=== PATIENT | male | born 1935 | race Asian ===

== ENCOUNTER 2019-07-12 08:17 | Emergency (ER) | payer MEDICARE, MEDICAID ==
[~2019-07-12] VITALS: Ht 160 cm; Wt 83.1 kg
[2019-07-12 09:18] LABS: BASOPHILS % (AUTO) 0.4 % (0-1); EOSINOPHILS # (AUTO) 0.2 X10'3 (0-0.9); EOSINOPHILS % (AUTO) 3.7 % (0-6); HEMATOCRIT 44.9 % (42.0-52.0); HEMOGLOBIN 14.9 g/dl (14.0-17.9); LYMPHOCYTES # (AUTO) 0.8 X10'3 (1.1-4.8); LYMPHOCYTES % (AUTO) 13.6 % (21-51); MEAN CORPUSCULAR HEMOGLOBIN 30.8 PG (27.0-31.0); MEAN CORPUSCULAR HGB CONC 33.3 g/dL (33.0-36.5); MEAN CORPUSCULAR VOLUME 92.8 FL (78-98); MEAN PLATELET VOLUME 7.9 FL (7.4-10.4); MONOCYTES # (AUTO) 0.2 X10'3 (0-0.9); MONOCYTES % (AUTO) 3.2 % (2-12); NEUTROPHILS # (AUTO) 4.6 X10'3 (1.8-7.7); NEUTROPHILS % (AUTO) 79.1 % (42-75); PLATELET COUNT 165 X10'3 (140-440); RED BLOOD COUNT 4.84 X10'6 (4.70-6.10); RED CELL DISTRIBUTION WIDTH 13.2 % (11.5-14.5); WHITE BLOOD COUNT 5.8 X10'3 (4.5-11.0)
[2019-07-12 09:31] LABS: ALANINE AMINOTRANSFERASE 43 U/L (12-78); ALBUMIN 3.2 G/DL (3.4-5.0); ALBUMIN/GLOBULIN RATIO 0.8 (1.1-1.5); ALKALINE PHOSPHATASE 101 IU/L (46-116); ANION GAP 7 (8-16); ASPARTATE AMINO TRANSFERASE 26 U/L (10-37); BILIRUBIN,TOTAL 0.6 MG/DL (0.1-1.0); BLOOD UREA NITROGEN 23 MG/DL (7-18); BUN/CREATININE RATIO 16.3 (5.4-32.0); CALCIUM 8.3 MG/DL (8.5-10.1); CHLORIDE 106 MMOL/L (99-107); CREATININE 1.41 MG/DL (0.60-1.10); GLUCOSE 424 MG/DL (70-104); POTASSIUM 5.5 MMOL/L (3.5-5.1); SODIUM 139 MMOL/L (135-145); TOTAL CARBON DIOXIDE 25.9 MMOL/L (24-32); eGFR 48 ML/MIN
[2019-07-12 09:39] LABS: LIPASE 249 U/L (73-393); MAGNESIUM 2.4 MG/DL (1.5-2.4)
[2019-07-12] MEDS ORDERED: insulin regular, human 10 units/0.1 ml syringe SQ ONE (09:45)
[2019-07-12] MEDS ORDERED: insulin regular, human 10 units/0.1 ml syringe IV ONE (11:05)
[2019-07-12] MEDS ORDERED: normal saline 1000ML IV soln IVB ONE (11:05)
[2019-07-12] MEDS ORDERED: POLY17PO10 PO (13:08)
[2019-07-12 13:22] VITALS: BP 142/83
== END 2019-07-12 13:24 | disposition home or self-care (01) ==
LOC: ER 08:18
DX: K59.00 Constipation, unspecified (principal); E11.65 Type 2 diabetes mellitus with hyperglycemia; J43.9 Emphysema, unspecified; Z87.891 Personal history of nicotine dependence; Z79.899 Other long term (current) drug therapy
CPT/HCPCS: 36415; 71045; 74176; 80053; 82948; 83690; 83735; 83880; 84484; 85025; 93005; 96361; 96372; 96374; 99284; J1815; J7030

== ENCOUNTER 2023-04-23 12:36 | Emergency (ER) | payer MEDICARE, MEDICAID ==
[~2023-04-23] VITALS: Ht 165.1 cm; Wt 84.1 kg
[~2023-04-23 12:36] MED LIST: ALBU17AE26 PO; ATOR20TA66 PO; GLIP10TA21 PO; LORA10TA7 PO; NOR5T PO; PIOG15TA67 PO; UMEC62.5 INH
[2023-04-23 12:43] VITALS: BP 188/85
[2023-04-23] MEDS ORDERED: morphine 4 MG/ML inj SYRINge IV ONE (14:50)
[2023-04-23] MEDS ORDERED: ondansetron/PF 4mg/2ml inj IV ONE (14:50)
--- NOTE | 2023-04-23 15:03 | NUR ---
CHARGE NURSE DIANA SOLORIO NOTIFIED OF IV MEDICATIONS ORDERED.
[2023-04-23 15:18] LABS: BASOPHILS % (AUTO) 0.3 % (0-1); EOSINOPHILS % (AUTO) 0.6 % (0-6); HEMOGLOBIN 15.5 g/dl (14.0-17.9); LYMPHOCYTES # (AUTO) 0.8 X10'3 (1.1-4.8); LYMPHOCYTES % (AUTO) 11.5 % (21-51); MEAN PLATELET VOLUME 7.3 FL (7.4-10.4); MONOCYTES # (AUTO) 0.4 X10'3 (0-0.9); MONOCYTES % (AUTO) 6.7 % (2-12); NEUTROPHILS # (AUTO) 5.4 X10'3 (1.8-7.7); NEUTROPHILS % (AUTO) 80.9 % (42-75); PLATELET COUNT 174 X10'3 (140-440); RED BLOOD COUNT 4.84 X10'6 (4.70-6.10); RED CELL DISTRIBUTION WIDTH 14.3 % (11.5-14.5); WHITE BLOOD COUNT 6.7 X10'3 (4.5-11.0)
[2023-04-23] MEDS ORDERED: iohexol 300mg/ml 100ml inj. ONE (15:35)
[2023-04-23 16:03] LABS: ALANINE AMINOTRANSFERASE 24 U/L (12-78); ALBUMIN 3.9 G/DL (3.4-5.0); ALKALINE PHOSPHATASE 105 IU/L (46-116); ANION GAP 11 (8-16); ASPARTATE AMINO TRANSFERASE 27 U/L (10-37); BILIRUBIN,TOTAL 0.7 MG/DL (0.1-1.0); BLOOD UREA NITROGEN 29 MG/DL (7-18); BUN/CREATININE RATIO 18.7 (10.0-20.0); CALCIUM 9.3 MG/DL (8.5-10.1); CHLORIDE 103 MMOL/L (99-107); CREATININE 1.55 MG/DL (0.60-1.10); GLUCOSE 275 MG/DL (70-104); POTASSIUM 5.1 MMOL/L (3.5-5.1); SODIUM 138 MMOL/L (135-145); TOTAL CARBON DIOXIDE 24.5 MMOL/L (24-32); eGFR 43 ML/MIN
[2023-04-23] MEDS ORDERED: CYCL-1 PO (17:07)
[2023-04-23] MEDS ORDERED: ACET-1025 PO (17:07)
== END 2023-04-23 17:27 | disposition home or self-care (01) ==
LOC: ER 12:39
DX: S39.012A Strain of muscle, fascia and tendon of lower back, initial encounter (principal); S16.1XXA Strain of muscle, fascia and tendon at neck level, initial encounter; R51.9 Headache, unspecified; E78.00 Pure hypercholesterolemia, unspecified; I10 Essential (primary) hypertension; E11.9 Type 2 diabetes mellitus without complications; W19.XXXA Unspecified fall, initial encounter; Y93.89 Activity, other specified; Y92.89 Other specified places as the place of occurrence of the external cause; Y99.8 Other external cause status
CPT/HCPCS: 36415; 70450; 71260; 72125; 73130; 74177; 80053; 85025; 96374; 96375; 99285; J2270; J2405; J3490; Q9967